=== PATIENT | male | born 1995 | race Caucasian/White ===

== ENCOUNTER → 2020-08-13 | Outpatient (CLI) | payer OTHER | LOC: KOH-I 08:00 | DX: M25.551 Pain in right hip (principal); M54.5 Low back pain; M51.26 Other intervertebral disc displacement, lumbar region; M51.27 Other intervertebral disc displacement, lumbosacral region | CPT/HCPCS: 72148; 73721 ==

== ENCOUNTER → 2020-10-01 | Outpatient (CLI) | payer MEDICARE | LOC: RAD 15:03 | DX: M13.80 Other specified arthritis, unspecified site (principal) | CPT/HCPCS: 73120 ==